=== PATIENT | female | born 1990 | race Two or more races ===

== ENCOUNTER 2019-06-21 13:31 | Emergency (ER) | payer MEDICAID ==
[~2019-06-21] VITALS: Ht 160 cm; Wt 72.6 kg
[2019-06-21 14:15] VITALS: BP 120/69
== END 2019-06-21 14:34 | disposition home or self-care (01) ==
LOC: ER 13:31
DX: J32.9 Chronic sinusitis, unspecified (principal); R59.1 Generalized enlarged lymph nodes; Z90.89 Acquired absence of other organs

== ENCOUNTER 2022-01-08 03:10 | Emergency (ER) | payer MEDICAID ==
[~2022-01-08] VITALS: Ht 167.6 cm; Wt 81.6 kg
--- NOTE | 2022-01-08 03:45 | NUR ---
BIBS C/O PAIN/PRESSURE IN LOWER ABDOMEN AND WHEN URINATING. ALSO C/O BURNING SENSATION ON VAGINA. PATIENT ALERT AND ORIENTED X3. AMBULATORY WITH NON LABORED BREATHING.
--- NOTE | 2022-01-08 03:46 | NUR ---
URINE COLLECTED AND SENT TO LAB
[2022-01-08 04:02] VITALS: BP 130/72
[2022-01-08 04:33] LABS: BILIRUBIN,URINE NEGATIVE (NEGATIVE); COLOR,URINE YELLOW (YELLOW); LEUKOCYTE ESTERASE ,URINE MODERATE (NEGATIVE); NITRITE, URINE NEGATIVE (NEGATIVE); PH,URINE 5.5 (5.0-8.0); PROTEIN,URINE NEGATIVE (NEGATIVE); UGLUCOSE NEGATIVE (NEGATIVE); UROBILINOGEN,URINE 0.2 EU/dL (0.2)
[2022-01-08 04:59] LABS: BACTERIA,URINE Many /HPF (None Seen); RBC,URINE 0-2 /HPF (0-2); SQUAMOUS EPITHELIAL CELL,UR Many /HPF (None Seen); WBC,URINE 21-50 /HPF (0-3)
[2022-01-08] MEDS ORDERED: CEPHALEXIN MONOHYDRATE 500 MG CAPSULE PO ONE ×2 (05:00→05:03)
[2022-01-08] MEDS ORDERED: CEPH500C2 PO (05:07)
[2022-01-10] MEDS ORDERED: POTASSIUM CHLORIDE 20 MEQ TAB.PRT.SR PO ONE (23:09)
== END 2022-01-08 05:14 | disposition home or self-care (01) ==
LOC: ER 03:28
DX: N30.90 Cystitis, unspecified without hematuria (principal); R30.0 Dysuria; Z90.89 Acquired absence of other organs; Z88.1 Allergy status to other antibiotic agents
CPT/HCPCS: 81001; 84703-TC; 87086-TC

== ENCOUNTER 2022-06-29 23:16 | Emergency (ER) | payer MEDICAID ==
[~2022-06-29] VITALS: Ht 160 cm; Wt 90.7 kg
[~2022-06-29 23:16] MED LIST: CEPH500C2 PO
--- NOTE | 2022-06-30 | NUR ---
BIBFAMILY C/O LEFT ANKLE PAIN. S/P TRIP & FALL X2 WEEKS AGO. PT A/OX4. TOLERATING R/A WELL WITH NO SOB. PT AMBULATORY WITH STEADY GAIT. SAFETY MEASURES IN PLACE.
--- NOTE | 2022-06-30 00:06 | NUR ---
PT SIGNED WAIVER FORM
--- NOTE | 2022-06-30 00:11 | NUR ---
BLADE FILER AT PT'S BEDSIDE
--- NOTE | 2022-06-30 00:50 | NUR ---
CALLED STAT RAD TO F/U WITH XRAY; REPORT TO BE READ BY DR. HAMPTON IN ABOUT 30 MINUTES
--- NOTE | 2022-06-30 02:12 | NUR ---
Patient discharged to home in stable condition. Written and verbal after care instructions given. Patient verbalizes understanding of instruction. pt ambulatory with a steady gait
[2022-06-30 02:13] VITALS: BP 108/71
== END 2022-06-30 02:13 | disposition home or self-care (01) ==
LOC: ER 23:19
DX: S93.492A Sprain of other ligament of left ankle, initial encounter (principal); W01.0XXA Fall on same level from slipping, tripping and stumbling without subsequent striking against object, initial encounter; Y93.K1 Activity, walking an animal; Y92.89 Other specified places as the place of occurrence of the external cause; Y99.8 Other external cause status
CPT/HCPCS: 73610-TC

== ENCOUNTER 2023-07-22 10:37 | Emergency (ER) | payer MEDICAID ==
[~2023-07-22] VITALS: Ht 160 cm; Wt 81.6 kg
[2023-07-22] MEDS ORDERED: IBUPROFEN 600 MG TABLET PO ONE (11:30)
[2023-07-22] MEDS ORDERED: IBUPROFEN 600 MG TABLET ONE (11:31)
[2023-07-22 11:54] LABS: BASOPHILS % (AUTO) 0.6 % (0.0-2.0); EOSINOPHILS # (AUTO) 0.1 K/uL (0.0-0.7); EOSINOPHILS % (AUTO) 1.9 % (0.0-6.0); HEMATOCRIT 41 % (33-45); HEMOGLOBIN 13.9 g/dL (11.5-14.8); MEAN CORPUSCULAR HEMOGLOBIN 29 PG (26.0-33.0); MEAN CORPUSCULAR HGB CONC 34 g/dl (31.0-36.0); MEAN CORPUSCULAR VOLUME 86 fL (82-100); MONOCYTES # (AUTO) 0.5 K/uL (0.1-1.30); MONOCYTES % (AUTO) 6.1 % (2.0-12.0); NEUTROPHILS % (AUTO) 52.4 % (43.0-81.0); PLATELET COUNT (AUTO) 308 K/uL (150-450); RED BLOOD CELL COUNT(AUTO) 4.76 MIL/uL (4.0-5.2); RED CELL DISTRIBUTION WIDTH 12.9 % (11.5-15.0); WHITE BLOOD COUNT (AUTO) 7.7 K/uL (4.3-11.0)
[2023-07-22 12:03] LABS: CALCIUM, SERUM 8.9 mg/dL (8.5-10.1); CREATININE 0.7 mg/dL (0.6-1.3); POTASSIUM 4.2 mmol/L (3.5-5.1)
[2023-07-22 12:08] LABS: ALBUMIN 3.6 g/dL (3.4-5.0); BILIRUBIN,DIRECT 0.1 mg/dL (0.0-0.2); BILIRUBIN,TOTAL 0.3 mg/dL (0.2-1.0)
[2023-07-22 13:49] LABS: APPEARANCE,URINE CLOUDY (CLEAR); BILIRUBIN,URINE NEGATIVE (NEGATIVE); BLOOD, URINE 3+ Ery/uL (NEGATIVE); COLOR,URINE DARK YELLOW (YELLOW); KETONES,URINE NEGATIVE (NEGATIVE); LEUKOCYTE ESTERASE ,URINE NEGATIVE (NEGATIVE); NITRITE, URINE POSITIVE (NEGATIVE); PROTEIN,URINE 1+ mg/dl (NEGATIVE); UGLUCOSE NEGATIVE (NEGATIVE); UROBILINOGEN,URINE 0.2 EU/dL (0.2)
[2023-07-22 13:50] LABS: ADD URINE CULTURE YES; BACTERIA,URINE Moderate /HPF (None Seen); PREGNANCY TEST URINE QUAL NEGATIVE (NEGATIVE); RBC,URINE TOO NUMEROUS TO COUN /HPF (0-2); SQUAMOUS EPITHELIAL CELL,UR Rare /HPF (None Seen)
[2023-07-22] MEDS ORDERED: NITR100C6 PO (14:08)
[2023-07-22 14:17] VITALS: BP 124/73; TEMP 97.8; O2SAT 100
== END 2023-07-22 14:17 | disposition home or self-care (01) ==
LOC: ER 10:41
DX: N39.0 Urinary tract infection, site not specified (principal); N92.0 Excessive and frequent menstruation with regular cycle; R10.2 Pelvic and perineal pain; Z90.89 Acquired absence of other organs; Z88.8 Allergy status to other drugs, medicaments and biological substances; Z60.2 Problems related to living alone
CPT/HCPCS: 36415; 76856-TC; 80048-TC; 80076-TC; 81001; 84703-TC; 85025-TC; 87086-TC

== ENCOUNTER 2025-09-25 15:17 | Emergency (ER) | payer MEDICAID, OTHER ==
[~2025-09-25] VITALS: Ht 165.1 cm; Wt 81.6 kg
[~2025-09-25 15:17] MED LIST changes: +NITR100C6 PO
[2025-09-25 15:29] VITALS: TEMP 97.8
[2025-09-25] MEDS ORDERED: METH-647 PO (15:49)
[2025-09-25] MEDS ORDERED: ACET-73 PO (15:49)
[2025-09-25] MEDS ORDERED: IBUP-1490 PO (15:49)
[2025-09-25] MEDS ORDERED: KETOROLAC TROMETHAMINE 15 MG/ML VIAL ONE (15:50)
[2025-09-25] MEDS ORDERED: METHOCARBAMOL (500MG) 500 MG TABLET ONE (15:50)
[2025-09-25] MEDS: METHOCARBAMOL (750MG) 750 MG TABLET PO SCH (15:55)
[2025-09-25] MEDS: KETOROLAC TROMETHAMINE 15 MG/ML VIAL IM ONE (15:56)
[2025-09-25] MEDS ORDERED: LIDO30AD10 TP (17:06)
[2025-09-25 19:25] VITALS: BP 117/75; O2SAT 97
== END 2025-09-25 17:37 | disposition home or self-care (01) ==
LOC: ER 15:30
DX: M53.3 Sacrococcygeal disorders, not elsewhere classified (principal); Z88.1 Allergy status to other antibiotic agents; Z90.49 Acquired absence of other specified parts of digestive tract; Z60.2 Problems related to living alone; W18.39XA Other fall on same level, initial encounter; Y93.89 Activity, other specified; Y92.89 Other specified places as the place of occurrence of the external cause; Y99.8 Other external cause status
CPT/HCPCS: 99284; 96372; 72220; 84703; J1885